=== PATIENT | male | born 2000 | race Hispanic/Latino ===

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

== ENCOUNTER 2022-04-06 20:54 | Emergency (ER) | payer BC, OTHER ==
[2022-04-06 23:03] LABS: SARS-CoV-2 NAA Rapid Test DETECTED (NotDetected)
== END 2022-04-06 21:46 | disposition home or self-care (01) ==
LOC: ERS 20:54
DX: U07.1 COVID-19 (principal)
CPT/HCPCS: 99283; U0002